=== PATIENT | female | born 1985 | race Caucasian/White ===

== ENCOUNTER 2020-11-20 09:01 | Day surgery (SDC) | payer MEDICAID, OTHER ==
[~2020-11-20 09:01] MED LIST: Lidocaine 1%/Sod Bicarbonate in NS 8.4% 1 ML Syringe IDERM PRN; Sodium Chloride 0.9% 10 ML Syringe FLUSH PRN
[2020-11-20] MEDS ORDERED: Lidocaine 1% with EPINEPHrine 1:100,000 10 ML MDV ONE (09:06)
[2020-11-20] MEDS ORDERED: Lidocaine 1% 4 ML ONE (09:06)
[2020-11-20] MEDS ORDERED: ceFAZolin 1 GM Vial ONE (09:06)
[2020-11-20] MEDS ORDERED: Ondansetron 4 MG/2 ML SDV ONE (09:06)
[2020-11-20] MEDS ORDERED: Propofol 200 MG/20 ML SDV ONE ×2 (09:06→09:49)
[2020-11-20] MEDS ORDERED: Rocuronium 50 MG/5 ML Vial ONE (09:06)
[2020-11-20] MEDS ORDERED: Midazolam 1 MG/ML 2 ML SDV ONE (09:06)
[2020-11-20] MEDS ORDERED: Sodium Chloride 0.9% 50 ML SDV ONE (09:06)
[2020-11-20] MEDS ORDERED: fentaNYL 250 MCG/5 ML SDV ONE (09:06)
[2020-11-20] MEDS: Lactated Ringers 1,000 ML IV SCH ×2 (09:25→16:01)
[2020-11-20] MEDS ORDERED: Scopolamine 1.5 MG Transdermal Patch TOP ONE (09:35)
--- NOTE | 2020-11-20 09:41 | PCM.PREANE ---
Preanesthetic Assessment - Procedure Proposed Procedure: [id number] and p vaginal repair - Anesthesia/Transfusion/Family Hx Anesthesia History: Prior Anesthesia Reaction Type of Anesthesia Reaction: Excessive Nausea/Vomiting Family History of Anesthesia Reaction: No Transfusion History: No Prior Transfusion(s) - Review of Systems General: No Symptoms Pulmonary: No Symptoms Cardiovascular: No Symptoms Gastrointestinal: No Symptoms Neurological: No Symptoms Other: Reports: Depression, Anxiety - Physical Assessment NPO Status Date: 11/19/20 NPO Status Time: 23:59 Vital Signs: 97/69 59 97% 16 97.8 Height: 5 ft 2 in Weight: 58 kg ASA Class: 2 Mental Status: Alert & Oriented x3 Airway Class: Mallampati = 1 Dentition: Reports: Normal Dentition Thyro-Mental Finger Breadths: 3 Mouth Opening Finger Breadths: 3 ROM/Head Extension: Full Lungs: Clear to Auscultation, Normal Respiratory Effort Cardiovascular: Regular Rate, Regular Rhythm - Lab Values: Laboratory Last Values Urine HCG, Qual Negative (NEGATIVE) 11/20/20 09:02 - Allergies Allergies/Adverse Reactions: Allergies Allergy/AdvReac Type Severity Reaction Status Date / Time No Known Allergies Allergy Verified 11/19/20 13:47 - Blood Blood Available: Yes - Acknowledgements Anesthesia Type Planned: General Anesthesia Pt an Appropriate Candidate for the Planned Anesthesia: Yes Alternatives and Risks of Anesthesia Discussed w Pt/Guardian: Yes Pt/Guardian Understands and Agrees with Anesthesia Plan: Yes PreAnesthesia Questionnaire Cardiovascular History: Reports: None Respiratory History: Reports: Asthma (inhalers- use in winter when has a cold) Gastrointestinal History: Reports: None Musculoskeletal History: Reports: None Psychiatric History: Reports: Anxiety, Depression Oncologic (Cancer) History: Reports: None - Past Surgical History HEENT Surgical History: Reports: Tonsillectomy GI Surgical History: Reports: Other (See Below) (gastroc sleeve) Female Surgical History: Reports: Other (See Below) (lots of plastics) - SUBSTANCE USE Tobacco Use Status *Q: Current Every Day Tobacco User Tobacco Use Within Last Twelve Months: Cigarettes Second Hand Smoke Exposure: Yes Days Per Week of Alcohol Use: 4 Number of Drinks Per Day: 5 Total Drinks Per Week: 20 Recreational Drug Use History: Yes Recreational Drug Type: Reports: Marijuana/Hashish (medical card) - HOME MEDS Home Medications: Home Meds Acyclovir 400 mg PO TID 11/19/20 [History] Vilazodone HCl [Viibryd] 10 mg PO ASDIRECTED 11/19/20 [History] - CURRENT (IN HOUSE) MEDS Current Meds: Current Medications Lactated Ringer's (Ringers, Lactated) 1,000 mls @ 125 mls/hr IV ASDIRECTED AMBREEN Stop: 11/20/20 23:00 Lidocaine/Sodium Bicarbonate (Lidocaine 1%/Sod Bicarbonate In Ns 8.4% 1 Ml Syringe) 0.25 ml IDERM ONETIME PRN PRN Reason: Prior to IV Start Stop: 11/20/20 18:00 Scopolamine (Scopolamine 1.5 Mg Transdermal Patch) 1.5 mg TOP ONETIME ONE Stop: 11/20/20 09:36 Sodium Chloride (Sodium Chloride 0.9% 10 Ml Syringe) 10 ml FLUSH ASDIRECTED PRN PRN Reason: Keep Vein Open Stop: 11/20/20 18:00 Discontinued Medications Cefazolin Sodium (Cefazolin 1 Gm Vial) Confirm Administered Dose 2 gm .ROUTE .STK-MED ONE Stop: 11/20/20 09:07 Fentanyl (Fentanyl 250 Mcg/5 Ml Sdv) Confirm Administered Dose 250 mcg .ROUTE .STK-MED ONE Stop: 11/20/20 09:07 Lidocaine HCl (Xylocaine-Mpf 1%) Confirm Administered Dose 4 mls @ as directed .ROUTE .STK-MED ONE Stop: 11/20/20 09:07 Lidocaine/Epinephrine (Lidocaine 1% With Epinephrine 1:100,000 10 Ml Mdv) Confirm Administered Dose 10 ml .ROUTE .STK-MED ONE Stop: 11/20/20 09:07 Midazolam HCl (Midazolam 1 Mg/Ml 2 Ml Sdv) Confirm Administered Dose 2 mg .ROUTE .STK-MED ONE Stop: 11/20/20 09:07 Ondansetron HCl (Ondansetron 4 Mg/2 Ml Sdv) Confirm Administered Dose 4 mg .ROUTE .STK-MED ONE Stop: 11/20/20 09:07 Propofol (Propofol 200 Mg/20 Ml Sdv) Confirm Administered Dose 200 mg .ROUTE .STK-MED ONE Stop: 11/20/20 09:07 Rocuronium [place] (Rocuronium 50 Mg/5 Ml Vial) Confirm Administered Dose 50 mg .ROUTE .STK-MED ONE Stop: 11/20/20 09:07 Sodium Chloride (Sodium Chloride 0.9% 50 Ml Sdv) Confirm Administered Dose 50 ml .ROUTE .[facility] ONE Stop: 11/20/20 09:07
[2020-11-20] MEDS ORDERED: Lactated Ringers 1,000 ML ONE (10:50)
[2020-11-20] MEDS ORDERED: HYDROmorphone 0.5 MG/0.5 ML Syringe IVPUSH PRN (11:09)
[2020-11-20] MEDS ORDERED: Ondansetron 4 MG/2 ML SDV IVPUSH PRN ×2 (11:09→12:39)
[2020-11-20] MEDS ORDERED: HYDROmorphone 0.5 MG/0.5 ML Syringe ONE (11:12)
[2020-11-20] MEDS ORDERED: Ketorolac 30 MG/ML SDV ONE (12:07)
--- NOTE | 2020-11-20 12:36 | PCM.POSTAN ---
POST ANESTHESIA ASSESSMENT - MENTAL STATUS Mental Status: Alert - VITAL SIGNS Vital Signs: Last Vital Signs Temp 97.8 F 11/20/20 09:00 Pulse 59 L 11/20/20 09:00 Resp 16 11/20/20 09:00 BP 97/69 11/20/20 09:00 Pulse Ox 97 11/20/20 09:00 1228 115/80 90 22 98.0 100% - RESPIRATORY Respiratory Status: Respiratory Rate WNL, Airway Patent, O2 Saturation Stable, Supplemental Oxygen - CARDIOVASCULAR CV Status: Pulse Rate WNL, Blood Pressure Stable - GASTROINTESTINAL GI Status: No Symptoms - PAIN Pain Score: 5 - POST OP HYDRATION Hydration Status: Adequate & Stable
--- NOTE | 2020-11-20 12:39 | PCM.SN.2 ---
- Free Text/Narrative Note: - General Post-Op/Procedure Note Date of Surgery/Procedure: 11/20/20 Operative Procedure(s): Total vaginal hysterectomy with bilateral salpingectomy, modified Moschcowitz stitch, anterior posterior vaginal repair with perineoplasty Findings: Grade 2-3 cystocele, grade 3 rectocele, grade 1-2 uterine descensus. Normal size uterus, ovaries normal. Fallopian tubes unremarkable. Pre Op Diagnosis: 1. Grade 2 cystocele. 2. Grade 3 rectocele. 3. Grade 1-2 uterine descensus. 4. Abnormal Pap smear Post-Op Diagnosis: Same Anesthesia Technique: General ET Tube Other Anesthesia Type: Lidocaine quarter percent with epinephrineapproximately 30 cc totallocal Primary Surgeon: Chapin Salazar Secondary Surgeon: Roman Alberts Anesthesia Provider: Chapo Balderas Building Specialist: Anca Wayne Reason Building Specialist Was Necessary: Retraction, assistance, patient safety, quality of care. Pathology: Uterus, bilateral fallopian tubes sent in 1 specimen container. Fluid Replacement, Intraop: 1,600 EBL in mLs: 75 Complications: None Condition: Good Free Text/Narrative:: Intake & Output 11/19/20 11/20/20 11/20/20 22:59 06:59 14:59 Intake Total 4100 Output Total 160 Balance 3940 Surgery duration: 73 minutes Procedure: The patient was placed in supine position on the operating table. She received 2 g of Ancef preoperatively for infection prophylaxis and had sequential compression stockings in place for DVT prophylaxis. General endotrach eal anesthesia was accomplished. After positioning, and adequate prep and drape, the procedure was then performed. Sterile speculum was placed in the vagina and cervix was visualized. Cervix was injected with [lidocaine quarter percent with epinephrine]. [20 cc] used. A full circumference incision was made in the cervical epithelium. The bladder was pushed well back off cervix. Posterior cul-de-sac was then entered sharply without problems. Left uterosacral was crossclamped with a Enseal vessel closure system. The left uterosacral and then the right uterosacral ligament pedicles were developed using the Enseal system. The anterior cul-de-sac was then entered without problems and the uterine vasculature, cardinal ligament and broad ligament then developed using Enseal vessel closure system. The uterus was inverted at this time and upper broad ligament fallopian tube pedicles were crossclamped with Nancy clamps. Specimen was totally removed. Left and right fallopian tube was normal in appearance. Using the vessel closure system each of the tubes was then removed and sent with the specimen. Ovaries removed in similar fashion bilaterally all specimens were sent in separate container. The patient was found to be hemostatically intact at this time. Posterior vaginal cuff was running locked with a 0 Monocryl suture. Hemostasis confirmed at this time. A modified taoist was suture was placed to reapproximate the uterosacral ligaments midline and reduce possibility of enterocele formation. Anterior vaginal repair was performed in the routine fashion. The midline epithelium was grasped approximately 2 cm from the urethral meatus. The epithelium at the vaginal cuff after removal of the uterus was grasped 2 with Allis clamps. The epithelium was infiltrated with lidocaine quarter percent with epinephrine approximately 10 mL. Midline incision was made in the epithelium was dissected off the underlying support tissue. The vesicovaginal fascia that remained was then reapproximated midline with approximately 3 the type sutures of 0 Monocryl. This effectively reduced the cystocele. Excess epithelium was removed on each side sharply and the epithelium was reapproximated using 3-0 Monocryl a short running suture. At this time the vaginal cuff was closed anteriorly to posteriorly. Posterior repair was then performed.The uppermost portion of the rectocele was identified and was grasped midline with an Allis clamp. The introital area was grasped at approximately the 4:00 and 8:00 positions at the junction of the vaginal and vulvar epithelium. The area of epithelium was then infiltrated with lidocaine quarter percent with epinephrine. A elif-shaped piece of epithelium was removed from the posterior introital and perineal area. The vaginal epithelium was then undermined superiorly to the top of the rectocele. Was then incised midline. With sharp and blunt dissection the epithelium was then dissected off of the underlying vesicovaginal fascia. At this point ap proximately 6 sutures of 0 Monocryl were placed to reapproximate the lateral supportive tissue midline and reduce the rectocele. The excess epithelium was then excised and the epithelium overlying the rectocele repair was then reapproximated with a running suture of 3-0 Monocryl. Perineoplasty was performed using 4 V-type stitches of 0 Monocryl. This lengthened the perineal body and the vagina. Also change the angle of vagina. At this point the epithelium over the perineum was closed in an episiotomy fashion using the 3-0 Monocryl suture. Patient was returned to supine position and awakened from general endotracheal anesthesia. She tolerated the procedure was then left the operating room in satisfactory condition.
[2020-11-20] MEDS: fentaNYL 100 MCG/2 ML SDV IVPUSH PRN ×2 (12:53→13:16)
--- NOTE | 2020-11-20 14:15 | PCM48HPAN ---
Post Anesthesia Note - EVALUATION WITHIN 48HRS OF ANESTHETIC Vital Signs in Normal Range: Yes Patient Participated in Evaluation: Yes Respiratory Function Stable: Yes Airway Patent: Yes Cardiovascular Function Stable: Yes Hydration Status Stable: Yes Pain Control Satisfactory: Yes Nausea and Vomiting Control Satisfactory: Yes (rests) Mental Status Recovered: Yes Vital Signs: Last Vital Signs Temp 97.1 F 11/20/20 13:15 Pulse 54 L 11/20/20 13:30 Resp 12 11/20/20 13:30 BP 104/65 11/20/20 13:30 Pulse Ox 94 L 11/20/20 13:30
[2020-11-20] MEDS: Acetaminophen/oxyCODONE 325-5 MG Tab PO PRN ×2 (14:18→19:40)
[2020-11-20] MEDS ORDERED: Ibuprofen 600 MG Tab PO PRN (18:00)
[2020-11-21 00:15] VITALS: BP 108/70; PULSE 57
== END 2020-11-20 21:24 | disposition home or self-care (01) ==
LOC: JD.SDS 09:01 → JD.MS 17:09 → JD.SDS 21:24
PROVIDERS: ATTEND Obstetrics & Gynecology
DX: N72 Inflammatory disease of cervix uteri (principal); N81.3 Complete uterovaginal prolapse; N83.8 Other noninflammatory disorders of ovary, fallopian tube and broad ligament; N87.9 Dysplasia of cervix uteri, unspecified; J45.909 Unspecified asthma, uncomplicated; Z87.891 Personal history of nicotine dependence
CPT/HCPCS: 36415; 51798; 57260; 58262; 81025; 82565; 85025; 86850; 86900; 86901; A9270; J0690; J1170; J1885; J2250; J2405; J2704; J2710; J3010; J7120; 00944